=== PATIENT | female | born 1980 | race Caucasian/White ===

== ENCOUNTER 2017-04-08 | Emergency (ER) | payer BC, MEDICAID | END 2017-04-08 01:14 | disposition home or self-care (01) | LOC: D.ER | DX: L02.811 Cutaneous abscess of head [any part, except face] (principal); E11.9 Type 2 diabetes mellitus without complications; F17.200 Nicotine dependence, unspecified, uncomplicated ==

== ENCOUNTER → 2017-09-03 09:05 | Outpatient (CLI) | payer BC | END | disposition home or self-care (01) | LOC: D.RAD 09:05 | DX: M79.671 Pain in right foot (principal) ==

== ENCOUNTER 2020-10-28 16:18 | Emergency (ER) | payer BC ==
[~2020-10-28] VITALS: Ht 172.7 cm; Wt 88.2 kg
[2020-10-28 16:36] VITALS: Ht 172.7 cm; Wt 88.2 kg
[2020-10-28] MEDS ORDERED: INSULIN (16:37)
[2020-10-28 17:21] LABS: HCG SERUM NEGATIVE (NEGATIVE)
[2020-10-28 17:23] LABS: ANION GAP 14.9 mmol/L (8-16); CALCIUM 9.1 mg/dL (8.5-10.1); CARBON DIOXIDE 23.7 mmol/L (21.0-32.0); CREATININE - SERUM 0.9 mg/dL (0.6-1.3); POTASSIUM - SERUM 3.6 mmol/L (3.5-5.1)
[2020-10-28 17:30] LABS: ALBUMIN 3.7 g/dL (3.4-5.0); BILIRUBIN - TOTAL 0.3 mg/dL (0.2-1.3); PROTEIN - SERUM 7.2 g/dL (6.4-8.2)
[2020-10-28 17:48] LABS: BASOPHILS 0.7 % (0-2); EOSINOPHILS 0.6 % (0-7); HEMATOCRIT 42.2 % (36.0-48.0); LYMPHOCYTES 20.2 % (15-50); MCH 30.2 pg (26.0-34.0); MCHC 33.2 g/dL (31.0-37.0); MCV 90.8 fL (80.0-100.0); MEAN PLATELET VOLUME 8.5 fL (7.4-10.4); MONOCYTES 6.2 % (2-11); NEUTROPHILS 72.3 % (40-80); PLATELET COUNT 289 10x3/uL (130-400); RBC 4.64 10x6/uL (4.00-5.40); RDW 13.1 % (11.5-14.5); WBC 7.9 10x3/uL (4.8-10.8)
== END 2020-10-28 19:51 | disposition home or self-care (01) ==
LOC: D.ER 16:18
PROVIDERS: Emergency Medicine
DX: R10.9 Unspecified abdominal pain (principal); E11.9 Type 2 diabetes mellitus without complications; Z79.4 Long term (current) use of insulin